=== PATIENT | male | born 1985 | race Caucasian/White ===

== ENCOUNTER 2016-04-19 12:33 | Inpatient (IN) | payer SELFPAY ==
[~2016-04-19] VITALS: Ht 180.3 cm; Wt 70.0 kg
[2016-04-19] MEDS ORDERED: KCL CR 20 MEQ TAB PO ONE (15:56)
[2016-04-19] MEDS ORDERED: HALOPERIDOL 5 MG TAB PO PRN (17:00)
[2016-04-19] MEDS ORDERED: DIPHENHYDRAMINE 50 MG CAP PO PRN (17:00)
[2016-04-19] MEDS ORDERED: HALOPERIDOL 5 MG/ML VIAL IM PRN (17:00)
[2016-04-19] MEDS ORDERED: ALU/MAG/SIM 30 ML UDC PO PRN (17:00)
[2016-04-19] MEDS ORDERED: LORAZEPAM 2 MG TAB PO PRN (17:00)
[2016-04-19] MEDS ORDERED: LORAZEPAM 2 MG/ML VIAL IM PRN (17:00)
[2016-04-19] MEDS ORDERED: MAG HYDROX 30 ML UDC PO PRN (17:00)
[2016-04-19] MEDS ORDERED: TRAZODONE 50 MG TAB PO PRN (17:00)
[2016-04-19] MEDS ORDERED: ACETAMINOPHEN 325 MG TAB PO PRN (17:00)
[2016-04-19] MEDS ORDERED: DIPHENHYDRAMINE 50 MG/ML VIAL IM PRN (17:00)
[2016-04-19] MEDS ORDERED: risperiDONE 2 MG TAB PO ONE (17:05)
[2016-04-19 17:23] VITALS: BP_SYST 154; RESP 20; TEMP 97.4
[2016-04-19 17:25] VITALS: Ht 180.3 cm; Wt 70.0 kg
[2016-04-19] MEDS: NICOTINE 21 MG/24 HR TRANSDERM SCH (17:53)
[2016-04-19 19:00] VITALS: BP_SYST 147; RESP 18; TEMP 97.9
[2016-04-19] MEDS: risperiDONE 2 MG TAB PO SCH (20:53)
[2016-04-20 07:27] VITALS: BP_SYST 144; RESP 20; TEMP 97.4
[2016-04-20] MEDS: NICOTINE 21 MG/24 HR TRANSDERM SCH (09:45)
[2016-04-20 19:02] VITALS: BP_SYST 146; RESP 18; TEMP 99.2
[2016-04-20] MEDS: risperiDONE 2 MG TAB PO SCH (21:00)
[2016-04-21 08:28] VITALS: BP_SYST 143; RESP 18; TEMP 97.8
[2016-04-21 12:17] VITALS: BP_SYST 143; RESP 18; TEMP 97.8
[2016-04-21 14:08] VITALS: BP_SYST 143; RESP 18; TEMP 97.8
== END 2016-04-21 14:32 | disposition home or self-care (01) | DRG 885 ==
LOC: ENRESERVTM → ENRESERVDT → ER 12:33 → EMR 15:56 → PSY 16:23
PROVIDERS: ADMIT Psychiatry & Neurology Psychiatry; ATTEND Psychiatry & Neurology Psychiatry
CPT/HCPCS: 80053; 81003; 84439; 84443; 85025; 85610